=== PATIENT | male | born 1945 | race Caucasian/White ===

== ENCOUNTER → 2016-10-12 | Outpatient (CLI) | payer MEDICARE, BC ==
--- NOTE | 2016-10-12 14:59 | RADRPT ---
PROCEDURE: XR pelvis/left hip. CLINICAL INDICATION: Hip pain TECHNIQUE: AP pelvis/AP and lateral left hip view performed COMPARISON: No prior studies are available for comparison. FINDINGS: There is moderate bilateral hip osteoarthrosis. This is associated with joint space narrowing, subch ondral sclerosis and osteophytosis. There is chondrocalcinosis with hyaline cartilage calcification . There is normal mineralization. No fractures or osseous lesions are identified. The soft tissue s are unremarkable. IMPRESSION: Moderate bilateral hip osteoarthrosis. Chondrocalcinosis RPTAT: [facility] .Lincoln Arias MD, MD Date Time Electronically viewed and signed by .Lincoln Arias MD, on 10/12/2016 14:58 .B/
== END | disposition home or self-care (01) ==
LOC: HKI 13:26
PROVIDERS: ATTEND Orthopaedic Surgery
DX: M16.12 Unilateral primary osteoarthritis, left hip (principal); M25.552 Pain in left hip
CPT/HCPCS: 73502; G0463